=== PATIENT | male | born 1950 | race Caucasian/White ===

== ENCOUNTER → 2017-02-03 | Outpatient (CLI) | payer OTHER | END | disposition home or self-care (01) | LOC: WOUND 08:35 | PROVIDERS: ATTEND Podiatrist Foot & Ankle Surgery | DX: I70.235 Atherosclerosis of native arteries of right leg with ulceration of other part of foot (principal); L97.511 Non-pressure chronic ulcer of other part of right foot limited to breakdown of skin; E11.51 Type 2 diabetes mellitus with diabetic peripheral angiopathy without gangrene; E11.22 Type 2 diabetes mellitus with diabetic chronic kidney disease; I13.2 Hypertensive heart and chronic kidney disease with heart failure and with stage 5 chronic kidney disease, or end stage renal disease; N18.6 End stage renal disease; I50.20 Unspecified systolic (congestive) heart failure; K70.30 Alcoholic cirrhosis of liver without ascites; Z87.891 Personal history of nicotine dependence; Z89.512 Acquired absence of left leg below knee; Z99.2 Dependence on renal dialysis | CPT/HCPCS: 11042; G0463; WOU0463 ==

== ENCOUNTER → 2017-02-10 | Outpatient (CLI) | payer OTHER | END | disposition home or self-care (01) | LOC: WOUND 09:11 | PROVIDERS: ATTEND Podiatrist Foot & Ankle Surgery | DX: I70.235 Atherosclerosis of native arteries of right leg with ulceration of other part of foot (principal); L97.511 Non-pressure chronic ulcer of other part of right foot limited to breakdown of skin; E11.621 Type 2 diabetes mellitus with foot ulcer; E11.51 Type 2 diabetes mellitus with diabetic peripheral angiopathy without gangrene; E11.22 Type 2 diabetes mellitus with diabetic chronic kidney disease; I13.2 Hypertensive heart and chronic kidney disease with heart failure and with stage 5 chronic kidney disease, or end stage renal disease; N18.6 End stage renal disease; I50.20 Unspecified systolic (congestive) heart failure; Z99.2 Dependence on renal dialysis; Z89.512 Acquired absence of left leg below knee; Z87.891 Personal history of nicotine dependence | CPT/HCPCS: 97597 ==